=== PATIENT | female | born 2000 | race Caucasian/White ===

== ENCOUNTER 2024-01-27 11:04 | Outpatient (CLI) | payer BC | END 2024-01-27 23:59 | disposition home or self-care (01) | LOC: LAB 11:04 | PROVIDERS: ATTEND Nurse Practitioner | DX: Z33.2 Encounter for elective termination of pregnancy (principal) | CPT/HCPCS: 36415; 84702 ==

== ENCOUNTER 2024-01-29 12:06 | Outpatient (CLI) | payer BC | END 2024-01-29 23:59 | disposition home or self-care (01) | LOC: LAB 12:06 | PROVIDERS: ATTEND Nurse Practitioner | DX: Z33.2 Encounter for elective termination of pregnancy (principal) | CPT/HCPCS: 36415; 84702 ==